=== PATIENT | male | born 1990 | race Caucasian/White ===

== ENCOUNTER 2017-03-11 12:09 | Emergency (ER) | payer BC ==
[~2017-03-11] VITALS: Wt 71.0 kg
[2017-03-11] MEDS ORDERED: ONDANSETRON 4 MG INJ IV STA (12:32)
[2017-03-11] MEDS ORDERED: SOD CHLORIDE 0.9% 1,000 ML IV STA (12:32)
[2017-03-11] MEDS ORDERED: KETOROLAC 30 MG INJ IV STA (12:32)
--- NOTE | 2017-03-11 12:39 | ERD ---
ER Documentation Chief Complaint Date/Time DATE: 03/11/17 TIME: 12:37 Chief Complaint LEFT FLANK PAIN HPI 26 year old male history of recent kidney stone diagnosis on the left side comes in with left flank pain. Patient states that he went to an emergency department in [facility] last week and had a renal ultrasound that showed a left-sided kidney stone but he is not sure exactly of the size and the location. He was then seen by a urologist and was treated with [place], ibuprofen and Zofran. He is also taking Flomax but he states it does not seem to help. He is in the process of getting a CT scan but it is taking some time through his insurance. He does report intermittent chronic cramping pain is in the left flank going to the left groin, moderate to severe. Has had intermittent hematuria associated with his pain. He denies fevers, area. ROS All systems reviewed and are negative except as per history of present illness. Medications Home Meds Active Scripts Tamsulosin Hcl* (Flomax*) 0.4 Mg Cap.er.24h, 0.4 MG PO BID, #30 CAP Prov:EDDY VICK PA-C 03/11/17 Ondansetron (Ondansetron Odt) 4 Mg Tab.rapdis, 4 MG PO Q6H Y for NAUSEA AND/OR VOMITING, #10 TAB Prov:EDDY VICK PA-C 03/11/17 Hydrocodone/Acetaminophen ([place] 5-325 Tablet) 1 Each Tablet, 1 TAB PO Q6H Y for PAIN, #20 TAB Prov:EDDY VICK PA-C 03/11/17 Allergies Allergies: Coded Allergies: No Known Allergy (Unverified , 03/11/17) PMhx/Soc History of Surgery: Yes (Ankle surgery) Hx Miscellaneous Medical Probl: Yes (Kidney stones) Hx Alcohol Use: Yes (Occasionally) Hx Substance Use: No Hx Tobacco Use: No Physical Exam Vitals Vital Signs Date Time Temp Pulse Resp B/P Pulse Ox O2 Delivery O2 Flow Rate FiO2 03/11/17 15:37 98.1 76 18 134/78 100 Room Air 03/11/17 12:13 98.0 78 18 143/81 99 Physical Exam = General: Well-developed, well-nourished. The patient appears in no acute distress. HEENT: Head is normocephalic, atraumatic. No scleral icterus. Neck: Supple. Nontender. Lungs: Clear to auscultation. Normal air movement. Heart: Regular rate and rhythm. S1 and S2 are normal. No murmurs, gallops, or rubs. Abdomen: Soft, nontender, nondistended. Bowel sounds are normoactive. Extremities: No clubbing or cyanosis. Normal pulses. Moving extremities x 4. No weakness. Neurologic: Alert and oriented 3. No focal deficits. Skin: Normal turgor. No rash or lesions. Result Diagram: 03/11/17 1250 03/11/17 1250 Results 24 hrs Laboratory Tests Test 03/11/17 12:50 White Blood Count 10.010^3/ul Red Blood Count 4.6610^6/ul Hemoglobin 14.5g/dl Hematocrit 43.2% Mean Corpuscular Volume 92.7fl Mean Corpuscular Hemoglobin 31.1pg Mean Corpuscular Hemoglobin Concent 33.6g/dl Red Cell Distribution Width 12.8% Platelet Count 68675^3/UL Mean Platelet Volume 11.2fl Neutrophils % 75.0% Lymphocytes % 16.0% Monocytes % 7.3% Eosinophils % 1.1% Basophils % 0.3% Nucleated Red Blood Cells % 0.0/100WBC Neutrophils # 7.510^3/ul Lymphocytes # 1.610^3/ul Monocytes # 0.710^3/ul Eosinophils # 0.110^3/ul Basophils # 0.010^3/ul Nucleated Red Blood Cells # 0.010^3/ul Urine Color YELLOW Urine Clarity CLEAR Urine pH 7.0 Urine Specific [place] 1.020 Urine Ketones 1+mg/dL Urine Nitrite NEGATIVEmg/dL Urine Bilirubin NEGATIVEmg/dL Urine Urobilinogen NEGATIVEmg/dL Urine Leukocyte Esterase NEGATIVELeu/ul Urine Hemoglobin NEGATIVEmg/dL Urine Glucose NEGATIVEmg/dL Urine Total Protein NEGATIVEmg/dl Sodium Level 138mmol/L Potassium Level 4.5mmol/L Chloride Level 103mmol/L Carbon Dioxide Level 27mmol/L Anion Gap 13 Blood Urea Nitrogen 13mg/dl Creatinine 1.78mg/dl Glucose Level 83mg/dl Calcium Level 9.9mg/dl Total Bilirubin 0.6mg/dl Direct Bilirubin 0.00mg/dl Indirect Bilirubin 0.6mg/dl Aspartate Amino Transf (AST/SGOT) 28IU/L Alanine Aminotransferase (ALT/SGPT) 47IU/L Alkaline Phosphatase 58IU/L Total Protein 8.3g/dl Albumin 4.5g/dl Globulin 3.80g/dl Albumin/Globulin Ratio 1.18 Current Medications Medications (Trade) Dose Ordered Sig/Sri Route PRN Reason Start Time Stop Time Status Last Admin Dose Admin Sodium Chloride (NS) 1,000 ml @ 1,000 mls/hr Q1H STAT IV 03/11/17 12:32 03/11/17 13:31 DC 03/11/17 13:02 Ondansetron HCl (Zofran Inj) 4 mg ONCE STAT IV 03/11/17 12:32 03/11/17 12:35 DC 03/11/17 12:57 Ketorolac Tromethamine (Toradol) 30 mg ONCE STAT IV 03/11/17 12:32 03/11/17 12:35 DC 03/11/17 12:56 Procedures/MDM ED course: Patient had an IV line established, blood and urine were obtained. For pain he received Toradol 30 mg IV, Zofran 4 mg IV and a fluid bolus of normal saline 1 L. Medical decision makin-year-old male presents with left-sided ureteral stone at is 5 mm with mild to moderate hydronephrosis with a Creatinine of 1.78. Patient states that his pain has been intermittent over the last several weeks. He does not know his normal kidney function is, can assume that there is some mild acute kidney injury related to this kidney stone due to the hydronephrosis. This was discussed with my attending physician as well who spoke with urologist, Dr. Dalal. The patient was informed that he needs to follow-up with urology in the next several days. He will be given a copy of his CT scan as well as his labs and he is continue Flomax prescription and she will be given additional prescription for [place] and Zofran advised to discontinue ibuprofen. Patient does not have any evidence of septic kidney stone, renal failure, and is appropriate to be discharged and managed on outpatient basis. Departure Diagnosis: Primary Impression: Left ureteral stone Condition: EDDY Richter PA-C Mar 11, 2017 12:39
[2017-03-11 13:09] LABS: BASOPHILS % 0.3 % (0.0-2.0); EOSINOPHILS # 0.1 10^3/ul (0.0-0.5); EOSINOPHILS % 1.1 % (0.0-7.0); HEMATOCRIT 43.2 % (42.0-52.0); HEMOGLOBIN 14.5 g/dl (14.0-18.0); LYMPHOCYTES # 1.6 10^3/ul (0.8-2.9); MEAN CORPUSCULAR HEMOGLOBIN 31.1 pg (29.0-33.0); MEAN CORPUSCULAR HGB CONC 33.6 g/dl (32.0-37.0); MEAN CORPUSCULAR VOLUME 92.7 fl (82.0-101.0); MEAN PLATELET VOLUME 11.2 fl (7.4-10.4); MONOCYTE # 0.7 10^3/ul (0.3-0.9); MONOCYTES % 7.3 % (0.0-11.0); NEUTROPHIL # 7.5 10^3/ul (1.6-7.5); PLATELET COUNT 197 10^3/UL (140-415); RED BLOOD COUNT 4.66 10^6/ul (4.70-6.10); RED CELL DISTRIBUTION WIDTH 12.8 % (11.5-14.5)
[2017-03-11 13:14] LABS: ADD UMIC NO; UR ASCORBIC ACID NEGATIVE (NEGATIVE); UR BILIRUBIN (Dip) NEGATIVE (NEGATIVE); UR BLOOD (Dip) NEGATIVE (NEGATIVE); UR CLARITY CLEAR (CLEAR); UR COLOR YELLOW (YELLOW); UR GLUCOSE (Dip) NEGATIVE (NEGATIVE); UR KETONES (Dip) 1+ mg/dL (NEGATIVE); UR LEUKOCYTE ESTERASE (Dip) NEGATIVE Leu/ul (NEGATIVE); UR NITRITE (Dip) NEGATIVE (NEGATIVE); UR TOTAL PROTEIN (Dip) NEGATIVE (NEGATIVE); UR UROBILINOGEN (Dip) NEGATIVE (NEGATIVE)
[2017-03-11 13:35] LABS: ALBUMIN 4.5 g/dl (3.3-4.9); ALBUMIN/GLOBULIN RATIO 1.18; BILIRUBIN,INDIRECT 0.6 mg/dl (0-1.1); BILIRUBIN,TOTAL 0.6 mg/dl (0.2-1.3); CALCIUM 9.9 mg/dl (8.4-10.2); CREATININE 1.78 mg/dl (0.61-1.24); POTASSIUM 4.5 mmol/L (3.5-5.1); TOTAL PROTEIN 8.3 g/dl (6.1-8.1)
[2017-03-11] MEDS ORDERED: HYDR-906 PO (15:16)
[2017-03-11] MEDS ORDERED: ONDA4TAB14 PO (15:16)
[2017-03-11] MEDS ORDERED: TAMS-14 PO (15:16)
[2017-03-11 15:37] VITALS: BP 134/78; PULSE 76; RESP 18; TEMP 98.1
--- NOTE | 2017-03-14 07:50 | RADRPT ---
PROCEDURE: CT Abdomen and Pelvis without contrast. CLINICAL INDICATION: Left lower quadrant pain. TECHNIQUE: CT scan of the abdomen and pelvis without contrast was performed on a multi-slice [facility] without intravenous contrast. Coronal and sagittal reformatted images were obtained from the axial source images. Images were reviewed on a high-resolution PACS workstation. One or more of the following does reduction techniques were used: Automated exposure control; adjustment of the mA an d/or kV according to patient size; use of the aorta of reconstruction technique. The total exam CTD I equals 9.63 mGy and the total exam DLP equals 570.98 mGy-cm. COMPARISON: None available. FINDINGS: The lung bases are clear. Heart size is normal, and there is no evidence of pericardial thickening or effusion. The liver, spleen, and pancreas are normal given limitations of a noncontrast CT examination. The g allbladder is normal. The adrenal glands are normal. The right kidney is without calcification or hydronephrosis. There a re a few 1-3 mm nonobstructing calcifications in the lower pole of the left kidney. There is a 5 mm distal left ureteral calcification causing mild to moderate left hydroureteronephrosis. The aorta is of normal caliber. There is no retroperitoneal lymph node enlargment. There is no evidence of large or small bowel obstruction. There is moderate retained colonic stool. A normal appendix is identified. No free fluid or fluid collections are identified. No inflammato ry changes are seen. There is a tiny periumbilical hernia containing only fat. No enlarged pelvic sidewall lymph nodes are seen. The bladder is within normal limits. No free fl uid is identified. The inguinal regions are unremarkable. The bones are intact. IMPRESSION: 1. 5 mm distal left ureteral calcification causing mild to moderate left hydroureteronephrosis. 2. Small nonobstructing left lower pole renal calculi. 3. Tiny periumbilical hernia containing only fat RPTAT: KK .Silverio Joy MD, MD Date Time Electronically viewed and signed by .Silverio Joy MD, MD on 03/11/2017 13:27 .B/
== END 2017-03-11 15:39 | disposition home or self-care (01) ==
LOC: FTE 12:09
DX: N20.1 Calculus of ureter (principal)
CPT/HCPCS: 36415; 74176; 80053; 81003; 85025; 87086; 96374; 96375; 99285; J1885; J2405; J7030

== ENCOUNTER 2017-03-26 11:37 | Emergency (ER) | payer BC ==
[~2017-03-26] VITALS: Wt 82.5 kg
[~2017-03-26 11:37] MED LIST: HYDR-906 PO; ONDA4TAB14 PO; TAMS-14 PO
[2017-03-26] MEDS ORDERED: SOD CHLORIDE 0.9% 1,000 ML IV STA (12:33)
[2017-03-26] MEDS ORDERED: ONDANSETRON 4 MG INJ IV STA (12:33)
[2017-03-26] MEDS ORDERED: KETOROLAC 30 MG INJ IV STA (12:33)
[2017-03-26 13:02] LABS: BASOPHILS % 0.4 % (0.0-2.0); EOSINOPHILS # 0.1 10^3/ul (0.0-0.5); EOSINOPHILS % 0.5 % (0.0-7.0); HEMATOCRIT 42.9 % (42.0-52.0); HEMOGLOBIN 14.5 g/dl (14.0-18.0); LYMPHOCYTES # 1.4 10^3/ul (0.8-2.9); LYMPHOCYTES % 12.6 % (15.0-51.0); MEAN CORPUSCULAR HEMOGLOBIN 30.6 pg (29.0-33.0); MEAN CORPUSCULAR HGB CONC 33.8 g/dl (32.0-37.0); MEAN CORPUSCULAR VOLUME 90.5 fl (82.0-101.0); MONOCYTE # 0.8 10^3/ul (0.3-0.9); MONOCYTES % 7.1 % (0.0-11.0); NEUTROPHIL # 8.9 10^3/ul (1.6-7.5); NEUTROPHILS % 79.1 % (39.0-77.0); PLATELET COUNT 260 10^3/UL (140-415); RED BLOOD COUNT 4.74 10^6/ul (4.70-6.10); RED CELL DISTRIBUTION WIDTH 12.4 % (11.5-14.5); WHITE BLOOD COUNT 11.3 10^3/ul (4.8-10.8)
[2017-03-26 13:06] LABS: ADD UMIC NO; UR ASCORBIC ACID NEGATIVE (NEGATIVE); UR BILIRUBIN (Dip) NEGATIVE (NEGATIVE); UR BLOOD (Dip) NEGATIVE (NEGATIVE); UR CLARITY CLEAR (CLEAR); UR COLOR STRAW (YELLOW); UR GLUCOSE (Dip) NEGATIVE (NEGATIVE); UR KETONES (Dip) TRACE mg/dL (NEGATIVE); UR LEUKOCYTE ESTERASE (Dip) NEGATIVE Leu/ul (NEGATIVE); UR NITRITE (Dip) NEGATIVE (NEGATIVE); UR SPECIFIC GRAVITY (Dip) 1.012 (1.003-1.030); UR TOTAL PROTEIN (Dip) NEGATIVE (NEGATIVE); UR UROBILINOGEN (Dip) NEGATIVE (NEGATIVE)
[2017-03-26 13:26] LABS: ALBUMIN 4.6 g/dl (3.3-4.9); ALBUMIN/GLOBULIN RATIO 1.04; BILIRUBIN,INDIRECT 0.3 mg/dl (0-1.1); BILIRUBIN,TOTAL 0.3 mg/dl (0.2-1.3); CALCIUM 10.1 mg/dl (8.4-10.2); CREATININE 1.45 mg/dl (0.61-1.24); POTASSIUM 3.9 mmol/L (3.5-5.1)
--- NOTE | 2017-03-26 13:38 | RADRPT ---
PROCEDURE: Renal US. CLINICAL INDICATION: Left flank pain TECHNIQUE: Multiple sonographic images of the kidneys were obtained. COMPARISON: CT 03/11/2017 FINDINGS: The kidneys are well visualized. The right kidney measures 10.6 cm. The left kidney measures 11.6 cm . Normal renal cortical echogenicity. No evidence of shadowing renal calculi. Mild left hydronephro sis. No right hydronephrosis. Normal appearance of the urinary bladder. IMPRESSION: Mild left hydronephrosis. Otherwise normal renal ultrasound. RPTAT:AAJJ Physician Nicolás Date Time Electronically viewed and signed by Physician Nicolás on 03/26/2017 13:38 /
--- NOTE | 2017-03-26 14:33 | ERD ---
ER Documentation Chief Complaint Date/Time DATE: 03/26/17 TIME: 14:31 Chief Complaint LEFT FLANK PAIN SINCE 0600 HPI 26-year-old male presents with left flank pain starting early this morning. He was seen here last week for kidney stones. He has been fine for last week until this morning. Denies any hematuria, fevers. He did vomit due to the pain this morning. ROS All systems reviewed and are negative except as per history of present illness. Medications Home Meds Active Scripts Tamsulosin Hcl* (Flomax*) 0.4 Mg Cap.er.24h, 0.4 MG PO BID, #30 CAP Prov:EDDY VICK PA-C 03/11/17 Ondansetron (Ondansetron Odt) 4 Mg Tab.rapdis, 4 MG PO Q6H Y for NAUSEA AND/OR VOMITING, #10 TAB Prov:EDDY VICK PA-C 03/11/17 Hydrocodone/Acetaminophen ([place] 5-325 Tablet) 1 Each Tablet, 1 TAB PO Q6H Y for PAIN, #20 TAB Prov:EDDY VICK PA-C 03/11/17 Allergies Allergies: Coded Allergies: No Known Allergy (Unverified , 03/11/17) PMhx/Soc History of Surgery: Yes (Ankle surgery) Hx Miscellaneous Medical Probl: Yes (Kidney stones) Hx Alcohol Use: Yes (Occasionally) Hx Substance Use: No Hx Tobacco Use: No Physical Exam Vitals Vital Signs Date Time Temp Pulse Resp B/P Pulse Ox O2 Delivery O2 Flow Rate FiO2 03/26/17 11:39 98.6 91 18 121/79 99 Physical Exam Const: [] Is comfort but no apparent distress. Head: Atraumatic Eyes: Normal Conjunctiva ENT: Normal External Ears, Nose and Mouth. Neck: Full range of motion..~ No meningismus. Resp: Clear to auscultation bilaterally Cardio: Regular rate and rhythm, no murmurs Abd: Soft, mid abdominal tenderness. No rebound and no tenderness at McBurney's point no Gaitan sign., non distended. Normal bowel sounds Skin: No petechiae or rashes Back: No midline or flank tenderness Ext: No cyanosis, or edema Neur: Awake and alert Psych: Normal Mood and Affect Result Diagram: 03/26/17 1241 03/26/17 1241 Results 24 hrs Laboratory Tests Test 03/26/17 12:41 White Blood Count 11.310^3/ul Red Blood Count 4.7410^6/ul Hemoglobin 14.5g/dl Hematocrit 42.9% Mean Corpuscular Volume 90.5fl Mean Corpuscular Hemoglobin 30.6pg Mean Corpuscular Hemoglobin Concent 33.8g/dl Red Cell Distribution Width 12.4% Platelet Count 66218^3/UL Mean Platelet Volume 10.0fl Neutrophils % 79.1% Lymphocytes % 12.6% Monocytes % 7.1% Eosinophils % 0.5% Basophils % 0.4% Nucleated Red Blood Cells % 0.0/100WBC Neutrophils # 8.910^3/ul Lymphocytes # 1.410^3/ul Monocytes # 0.810^3/ul Eosinophils # 0.110^3/ul Basophils # 0.010^3/ul Nucleated Red Blood Cells # 0.010^3/ul Urine Color STRAW Urine Clarity CLEAR Urine pH 7.0 Urine Specific [place] 1.012 Urine Ketones TRACEmg/dL Urine Nitrite NEGATIVEmg/dL Urine Bilirubin NEGATIVEmg/dL Urine Urobilinogen NEGATIVEmg/dL Urine Leukocyte Esterase NEGATIVELeu/ul Urine Hemoglobin NEGATIVEmg/dL Urine Glucose NEGATIVEmg/dL Urine Total Protein NEGATIVEmg/dl Sodium Level 139mmol/L Potassium Level 3.9mmol/L Chloride Level 103mmol/L Carbon Dioxide Level 26mmol/L Anion Gap 14 Blood Urea Nitrogen 10mg/dl Creatinine 1.45mg/dl Glucose Level 95mg/dl Calcium Level 10.1mg/dl Total Bilirubin 0.3mg/dl Direct Bilirubin 0.00mg/dl Indirect Bilirubin 0.3mg/dl Aspartate Amino Transf (AST/SGOT) 30IU/L Alanine Aminotransferase (ALT/SGPT) 36IU/L Alkaline Phosphatase 78IU/L Total Protein 9.0g/dl Albumin 4.6g/dl Globulin 4.40g/dl Albumin/Globulin Ratio 1.04 Lipase 186U/L Current Medications Medications (Trade) Dose Ordered Sig/Sri Route PRN Reason Start Time Stop Time Status Last Admin Dose Admin Sodium Chloride (NS) 1,000 ml @ 1,000 mls/hr Q1H STAT IV 03/26/17 12:33 03/26/17 13:32 DC 03/26/17 12:54 Ondansetron HCl (Zofran Inj) 4 mg ONCE STAT IV 03/26/17 12:33 03/26/17 12:35 DC 03/26/17 12:54 Ketorolac Tromethamine (Toradol) 30 mg ONCE STAT IV 03/26/17 12:33 03/26/17 12:35 DC 03/26/17 12:54 Procedures/MDM And shows no acute abnormalities. IV was obtained and patient was given 1 L normal saline IV, Toradol 30 mg IV. CBC shows mild leukocytosis, likely stress reaction given absence of additional infectious symptoms. Creatinine slightly elevated but improved from previous visit. Better after observation and treatment. Patient presents with left flank pain with a history of kidney stones. He did have an undescended stones on previous studies which may be the cause of this. Discharged home with instructions to continue current medications, urology follow-up and return precautions. The patient was stable with no new complaints during the ER course. Clinically, there is no current evidence to suggest meningitis, sepsis, acute abdomen, pneumonia, acute coronary syndrome, pulmonary embolism, or any other emergent condition appearing to require further evaluation or hospitalization. The patient should certainly return for any new or worsening symptoms per the aftercare instructions. They should otherwise follow-up with her primary care doctor for reevaluation this week. Departure Diagnosis: Primary Impression: Left ureteral stone Additional Impression: Abdominal colic Condition: Stable Patient Instructions: Kidney Stone W/ Colic Referrals: DION NOE MD, EUGENE MD LEFF,VASYL Steven MD Additional Instructions: Likely kidney stone. See urology for follow-up. Return for fevers, vomiting, worsening pain, new worsening symptoms or TIFFANIE WU MD Mar 26, 2017 14:33
== END 2017-03-26 15:11 | disposition home or self-care (01) ==
LOC: FTE 11:37
DX: N20.1 Calculus of ureter (principal); R10.84 Generalized abdominal pain
CPT/HCPCS: 36415; 76775; 80053; 81003; 83690; 85025; 96374; 96375; 99285; J1885; J2405; J7030